=== PATIENT | female | born 1955 | race Caucasian/White ===

== ENCOUNTER 2021-03-08 10:14 | Outpatient (CLI) | payer MEDICARE | END 2021-03-08 10:15 | disposition home or self-care (01) | LOC: CSHULT 10:14 | PROVIDERS: ATTEND Internal Medicine Gastroenterology | DX: B18.2 Chronic viral hepatitis C (principal); R94.5 Abnormal results of liver function studies; F10.10 Alcohol abuse, uncomplicated; F03.90 Unspecified dementia, unspecified severity, without behavioral disturbance, psychotic disturbance, mood disturbance, and anxiety; K76.9 Liver disease, unspecified | CPT/HCPCS: 76705 ==